=== PATIENT | male | born 1975 | race Caucasian/White ===

== ENCOUNTER 2017-05-24 15:14 | Emergency (ER) | payer BC, OTHER ==
[2017-05-24 15:34] VITALS: BP 146/73; PULSE 80; RESP 18; TEMP 97.9
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
== END 2017-05-24 15:59 | disposition home or self-care (01) ==
LOC: EC 15:14
DX: S16.1XXA Strain of muscle, fascia and tendon at neck level, initial encounter (principal); F32.9 Major depressive disorder, single episode, unspecified; Z79.899 Other long term (current) drug therapy; Z88.5 Allergy status to narcotic agent; X50.0XXA Overexertion from strenuous movement or load, initial encounter; Y92.69 Other specified industrial and construction area as the place of occurrence of the external cause; Y93.89 Activity, other specified; Y99.0 Civilian activity done for income or pay
CPT/HCPCS: 99283

== ENCOUNTER 2017-08-27 05:39 | Emergency (ER) | payer OTHER ==
[2017-08-27 05:53] VITALS: BP 137/75; PULSE 82; RESP 20; TEMP 97.9
[2017-08-27] MEDS ORDERED: KETOROLAC 30 MG/ML 1 ML VIAL IM STA (06:07)
[2017-08-27] MEDS ORDERED: ONDANSETRON ODT 4 MG TAB PO STA (06:07)
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
== END 2017-08-27 06:26 | disposition home or self-care (01) ==
LOC: EC 05:39
DX: S39.012A Strain of muscle, fascia and tendon of lower back, initial encounter (principal); M54.32 Sciatica, left side; Z88.5 Allergy status to narcotic agent; Z98.890 Other specified postprocedural states; X50.0XXA Overexertion from strenuous movement or load, initial encounter; X50.1XXA Overexertion from prolonged static or awkward postures, initial encounter; Y92.69 Other specified industrial and construction area as the place of occurrence of the external cause; Y99.0 Civilian activity done for income or pay; Y93.F2 Activity, caregiving, lifting
CPT/HCPCS: 99283; 96372; J1885

== ENCOUNTER 2018-03-13 21:18 | Emergency (ER) | payer OTHER ==
[2018-03-13 21:25] VITALS: BP 139/90; PULSE 88; RESP 20; TEMP 98.3
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
== END 2018-03-13 21:55 | disposition home or self-care (01) ==
LOC: EC 21:18
DX: Z02.83 Encounter for blood-alcohol and blood-drug test (principal); Z88.5 Allergy status to narcotic agent; V67.5XXA Driver of heavy transport vehicle injured in collision with fixed or stationary object in traffic accident, initial encounter; Y92.69 Other specified industrial and construction area as the place of occurrence of the external cause; Y99.0 Civilian activity done for income or pay
CPT/HCPCS: 99284